=== PATIENT | female | born 1940 | race Caucasian/White ===

== ENCOUNTER 2016-11-19 06:37 | Day surgery (SDC) | payer MEDICARE, BC ==
[2016-11-19] MEDS ORDERED: Bupivacaine 0.5% 30 ML SDV ONE (06:58)
[2016-11-19] MEDS ORDERED: Povidone-Iodine 10% Soln 118.25 ML Bottle ONE (06:58)
[2016-11-19] MEDS ORDERED: Dexamethasone 4 MG/ML 5 ML MDV ONE (06:58)
[2016-11-19] MEDS ORDERED: Clindamycin Phosphate 900 MG in Sodium Chloride 0.9% 100 ML IV ONE (07:00)
[2016-11-19] MEDS ORDERED: Lactated Ringers 1,000 ML IV SCH (07:00)
[2016-11-19] MEDS ORDERED: Midazolam 1 MG/ML 2 ML SDV ONE (07:08)
[2016-11-19] MEDS ORDERED: Propofol 200 MG/20 ML SDV ONE (07:08)
[2016-11-19] MEDS ORDERED: fentaNYL 100 MCG/2 ML SDV ONE (07:08)
[2016-11-19] MEDS ORDERED: Lidocaine 0.5% 50 ML SDV ONE (07:11)
--- NOTE | 2016-11-19 09:51 | OR ---
DATE OF PROCEDURE: 11/19/2016 PREOPERATIVE DIAGNOSIS: Left carpal tunnel syndrome. POSTOPERATIVE DIAGNOSIS: Left carpal tunnel syndrome. PROCEDURE: Left carpal tunnel release. APPLICATION INTEGRATOR: ZAYRA Lara. ANESTHESIA: [place] block plus conscious sedation. FLUIDS: Lactated Ringer solution. ESTIMATED BLOOD LOSS: Zero. COMPLICATIONS: None. SPECIMEN: None. DISCHARGE DISPOSITION: Stable to PACU. INDICATION: The patient was seen preoperatively in the clinic. She had an EMG indicating entrapment of the median nerve at the wrist. Risks and benefits of the procedure were explained to the patient. Informed consent was obtained. DETAILS OF PROCEDURE: The patient was seen preoperatively by myself, and the Anesthesia staff in the preop holding area, where the operative site was marked. She was brought to the operative suite by the Anesthesia staff, where conscious sedation plus Francisco block was administered. The left upper extremity was then prepped and draped in a sterile manner. Time-out was called identifying the correct patient, the correct procedure, the correct site, and that antibiotics had begun within the appropriate period of time. An incision was made just proximal to Potter's cardinal line, in line with the radial border of the fourth digit and carried down for approximately 1.5 cm proximally. Bipolar electrocautery was used for small skin bleeders. A self-retaining retractor was then used. Fascia was then divided down to the level of the transverse carpal ligament. The transverse carpal ligament was divided along in gentle fashion, approximately 2 mm from the hook of the hamate. Metzenbaums were then used under direct visualization with the Ragnell retractor to go underneath the deep palmar fascia below and above it, and then divided with the Metzenbaums under direct visualization proximally and distally. We then copiously irrigated with sterile saline and then applied a few drops of Decadron, and then closed the incision with 3-0 nylon followed by a sterile dressing. The tourniquet was let down by Anesthesia staff after appropriate period of time. The patient was then allowed to awaken from conscious sedation and taken to the PACU in a stable condition. Levi Grossman DO /[id number]
[2016-11-19 10:32] VITALS: BP 135/87
== END 2016-11-19 10:20 | disposition home or self-care (01) ==
LOC: JP.SDS 06:37
PROVIDERS: ATTEND Orthopaedic Surgery
DX: G56.02 Carpal tunnel syndrome, left upper limb (principal); I10 Essential (primary) hypertension; F32.9 Major depressive disorder, single episode, unspecified; Z88.1 Allergy status to other antibiotic agents; Z88.2 Allergy status to sulfonamides; Z88.8 Allergy status to other drugs, medicaments and biological substances; Z91.040 Latex allergy status; Z91.09 Other allergy status, other than to drugs and biological substances; Z91.018 Allergy to other foods; Z79.899 Other long term (current) drug therapy; Z90.49 Acquired absence of other specified parts of digestive tract; Z96.659 Presence of unspecified artificial knee joint; Z98.890 Other specified postprocedural states
CPT/HCPCS: 64721; J1100; J2250; J2704; J3010; J7030; J7120; S0077

== ENCOUNTER 2018-09-28 09:15 | Emergency (ER) | payer MEDICARE ==
[2018-09-28] MEDS ORDERED: Lactated Ringers 1,000 ML IV ONE (10:00)
--- NOTE | 2018-09-28 10:06 | EDM.PDOC ---
ED HPI GENERAL MEDICAL PROBLEM - General Chief Complaint: Cardiovascular Problem Stated Complaint: BLOOD PRESSURE DROPPING Time Seen by Provider: 09/28/18 09:50 Source of Information: Reports: Patient, Old Records, RN History Limitations: Reports: No Limitations - History of Present Illness INITIAL COMMENTS - FREE TEXT/NARRATIVE: 77 yo female called the clinic today to report low BP and light-headedness when up for about a week, they told her to come to the ER. No call received from the clinic regarding this referral. Patient denies any recent med changes, bleeding , fever, diarrhea or nausea/vomiting. Feels fine when sitting or lying. Has had very high BP's in the past, but never low. 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: Reports: Other (see below) (none) - Related Data Allergies Allergy/AdvReac Type Severity Reaction Status Date / Time amoxicillin trihydrate Allergy Hives Verified 09/28/18 09:31 [From Augmentin] cefazolin sodium [From Ancef] Allergy Hives Verified 09/28/18 09:31 diclofenac sodium Allergy Cannot Verified 09/28/18 09:31 [From Arthrotec] Remember gentamicin [Gentamicin] Allergy Hives Verified 09/28/18 09:31 meloxicam [From Mobic] Allergy Rash Verified 09/28/18 09:31 misoprostol [From Arthrotec] Allergy Cannot Verified 09/28/18 09:31 Remember paroxetine Allergy Cannot Verified 09/28/18 09:31 Remember potassium clavulanate Allergy Hives Verified 09/28/18 09:31 [From Augmentin] sertraline HCl [From Zoloft] Allergy Cannot Verified 09/28/18 09:31 Remember Sulfa (Sulfonamide Allergy Rash Verified 09/28/18 09:31 Antibiotics) vancomycin Allergy Hives Verified 09/28/18 09:31 baclofen AdvReac Dizziness Verified 09/28/18 09:31 chocolate flavor AdvReac Confusion Verified 09/28/18 09:31 codeine AdvReac Stomach Verified 09/28/18 09:31 Upset gluten AdvReac Confusion Verified 09/28/18 09:31 Latex, Natural Rubber AdvReac Change Verified 09/28/18 09:31 Mental Status povidone-iodine AdvReac Blisters Verified 09/28/18 09:31 [From Betadine] prednisone AdvReac Hallucinati Verified 09/28/18 09:31 ons soap [From Betadine] AdvReac Blisters Verified 09/28/18 09:31 adhesive Allergy Blisters Uncoded 09/28/18 09:31 environmental Allergy Other Uncoded 09/28/18 09:31 flavoring agents Allergy Other Uncoded 09/28/18 09:31 Home Meds: Home Meds Albuterol Sulfate [Albuterol Sulfate HFA] 108 mcg IH Q6HR PRN 11/25/12 [History] Venlafaxine HCl [Venlafaxine ER] 75 mg PO DAILY 11/25/12 [History] traZODone HCl [Trazodone HCl] 200 mg PO BEDTIME 11/25/12 [History] Acetaminophen/Caffeine [Excedrin Tension Headache] 1 tab PO Q6H 06/02/14 [ History] Amiodarone HCl [Pacerone] 200 mg PO DAILY 06/02/14 [History] Betamethasone/Clotrimazole [Lotrisone] 1 film TOP DAILY PRN 06/02/14 [History] Loperamide HCl [Anti-Diarrheal] 2 mg PO Q4H PRN 06/02/14 [History] SUMAtriptan [Imitrex] 100 mg PO DAILY PRN 06/02/14 [History] buPROPion [buPROPion XL] 150 mg PO DAILY 06/02/14 [History] Cholecalciferol (Vitamin D3) [Vitamin D3] 2,000 units PO DAILY 11/18/16 [History ] Fluticasone Propionate [Flonase] 2 spray NS DAILY 11/19/16 [History] Pantoprazole [ProTONIX] 40 mg PO DAILY 11/19/16 [History] Diltiazem HCl [Cartia Xt] 360 mg PO DAILY 09/28/18 [History] Labetalol [Normodyne] 200 mg PO BID 09/28/18 [History] Topiramate 12.5 mg PO DAILY 09/28/18 [History] hydroCHLOROthiazide [Hydrochlorothiazide] 6.25 mg PO DAILY 09/28/18 [History] tiZANidine [Zanaflex] 4 mg PO Q8HR PRN 09/28/18 [History] Past Medical History HEENT History: Reports: Allergic Rhinitis, Cataract, Hard of Hearing, Sinusitis Cardiovascular History: Reports: Afib, High Cholesterol, Hypertension, PVD, Other (See Below) Other Cardiovascular History: mitral valve insufficiency Respiratory History: Reports: Bronchitis, Recurrent Gastrointestinal History: Reports: Cholelithiasis, GERD, Irritable Bowel Syndrome, Pancreatitis Genitourinary History: Reports: Renal Calculus, Urinary Incontinence 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: Musculoskeletal History: Reports: Arthritis, Other (See Below) Other Musculoskeletal History: s/p L carpan tunnel release Neurological History: Reports: Migraines Psychiatric History: Reports: Anxiety, Depression Endocrine/Metabolic History: Reports: Other (See Below) Other Endocrine/Metabolic History: removal of parathyroid Hematologic History: Reports: B12 Deficiency Dermatologic History: Reports: Psoriasis - Infectious Disease History Infectious Disease History: Reports: Chicken Pox, Influenza, Measles, Mumps - Past Surgical History HEENT Surgical History: Reports: Cataract Surgery Cardiovascular Surgical History: Reports: Other (See Below) Other Cardiovascular Surgeries/Procedures: caridoversion 2014 nsr since then GI Surgical History: Reports: Cholecystectomy, Colonoscopy, EGD Female Surgical History: Reports: Hysterectomy Neurological Surgical History: Reports: Lumbar Spine, Spinal Fusion Musculoskeletal Surgical History: Reports: Knee Replacement Other Musculoskeletal Surgeries/Procedures:: both Social & Family History - Family History Family Medical History: Noncontributory - Tobacco Use Smoking Status *Q: Never Smoker - Caffeine Use Caffeine Use: Reports: Tea - Recreational Drug Use Recreational Drug Use: No ED ROS GENERAL - Review of Systems Review Of Systems: See Below Constitutional: Reports: No Symptoms HEENT: Reports: No Symptoms Respiratory: Reports: No Symptoms Cardiovascular: Reports: Blood Pressure Problem, Lightheadedness Endocrine: Reports: No Symptoms GI/Abdominal: Reports: No Symptoms : Reports: No Symptoms Musculoskeletal: Reports: No Symptoms Skin: Reports: No Symptoms Neurological: Reports: No Symptoms ED EXAM, GENERAL - Physical Exam Exam: See Below Exam Limited By: No Limitations General Appearance: Alert, WD/WN, No Apparent Distress Eye Exam: Bilateral Eye: Normal Inspection Ears: Normal External Exam, Normal Canal, Hearing Grossly Normal, Normal TMs Ear Exam: Bilateral Ear: Auricle Normal, Canal Normal, TM normal Nose: Normal Inspection, No Blood Throat/Mouth: Normal Inspection, Normal Lips, Normal Oropharynx, Normal Voice, No Airway Compromise Head: Atraumatic, Normocephalic Neck: Normal Inspection Respiratory/Chest: No Respiratory Distress, Lungs Clear, Normal Breath Sounds, No Accessory Muscle Use Cardiovascular: Regular Rate, Rhythm, No Edema GI/Abdominal: Normal Bowel Sounds, Soft, Non-Tender, No Distention Back Exam: Normal Inspection. No: CVA Tenderness (R), CVA Tenderness (L) Extremities: Normal Inspection, Normal Range of Motion, Non-Tender, No Pedal Edema Neurological: Alert, Oriented, CN II-XII Intact, Normal Cognition, No Motor/ Sensory Deficits Psychiatric: Normal Affect, Normal Mood Skin Exam: Warm, Dry, Intact, Normal Color, No Rash Lymphatic: No Adenopathy Course - Vital Signs Last Recorded V/S: Last Vital Signs Temp 35.3 C 09/28/18 09:30 Pulse 57 L 09/28/18 10:20 Resp 20 09/28/18 09:30 BP 120/59 L 09/28/18 10:20 Pulse Ox 95 09/28/18 10:20 - Orders/Labs/Meds Orders: Active Orders 24 hr Category Date Time Status Lactated Ringers [Ringers, Lactated] 1,000 ml Med 09/28/18 10:00 Active IV BOLUS Medication Orders Lactated Ringer's (Ringers, Lactated) 1,000 mls @ 1,000 mls/hr IV BOLUS ONE Stop: 09/28/18 10:59 Last Admin: 09/28/18 10:14 Dose: 1,000 mls/hr Labs: Laboratory Tests 09/28/18 Range/Units 09:27 Sodium 140 (140-148) mmol/L Potassium 3.7 (3.6-5.2) mmol/L Chloride 103 (100-108) mmol/L Carbon Dioxide 26 (21-32) mmol/L Anion Gap 11.2 (5.0-14.0) mmol/L BUN 24 H D (7-18) mg/dL Creatinine 1.4 H (0.6-1.0) mg/dL Est Cr Clr Drug Dosing 24.55 mL/min Estimated GFR (MDRD) 37 L (>60) Glucose 89 (74-106) mg/dL Calcium 8.8 (8.5-10.1) mg/dL Meds: Medications Generic Name Dose Route Start Last Admin Trade Name Juliana PRN Reason Stop Dose Admin Lactated Ringer's 1,000 mls @ 1,000 mls/hr 09/28/18 10:00 09/28/18 10:14 Ringers, Lactated IV 09/28/18 10:59 1,000 mls/hr BOLUS ONE Administration Departure - Departure Time of Disposition: 11:15 Disposition: Home, Self-Care 01 Condition: Fair Clinical Impression: Mild dehydration, Orthostatic hypotension Instructions: Dehydration, Adult, [id number] Referrals: Saturnino Huertas MD [Primary Care Provider] - Forms: ED Department Discharge Additional Instructions: Reduce the dosage of your HCTZ to every other day. Drink more fluids than you have been drinking. Recheck with your provider again before the weekend. - My Orders Last 24 Hours: My Active Orders 09/28/18 10:00 Lactated Ringers [Ringers, Lactated] 1,000 ml IV BOLUS - Assessment/Plan Last 24 Hours: My Active Orders 09/28/18 10:00 Lactated Ringers [Ringers, Lactated] 1,000 ml IV BOLUS
[2018-09-28 10:29] VITALS: PULSE 57
[2018-09-28 11:26] VITALS: BP 128/58
== END 2018-09-28 11:28 | disposition home or self-care (01) ==
LOC: JP.ED 09:15
DX: E86.0 Dehydration (principal); I95.1 Orthostatic hypotension; I48.91 Unspecified atrial fibrillation; E78.00 Pure hypercholesterolemia, unspecified; I10 Essential (primary) hypertension; K21.9 Gastro-esophageal reflux disease without esophagitis; F41.9 Anxiety disorder, unspecified; F32.9 Major depressive disorder, single episode, unspecified; Z88.1 Allergy status to other antibiotic agents; Z91.048 Other nonmedicinal substance allergy status; Z88.8 Allergy status to other drugs, medicaments and biological substances; Z91.040 Latex allergy status; Z88.5 Allergy status to narcotic agent; Z91.018 Allergy to other foods; Z88.2 Allergy status to sulfonamides; Z79.899 Other long term (current) drug therapy; Z87.442 Personal history of urinary calculi
CPT/HCPCS: 36415; 80048; 96360; 99284; J7120

== ENCOUNTER 2022-12-07 10:58 | Emergency (ER) | payer MEDICARE ==
[2022-12-07 11:35] LABS: BASOPHILS ABSOLUTE AUTO 0.03 K/uL (0.00-0.10); BASOPHILS PERCENT AUTO 0.3 % (0.1-1.3); EOSINOPHILS ABSOLUTE AUTO 0.14 K/uL (0.00-0.40); EOSINOPHILS PERCENT AUTO 1.6 % (0.0-5.4); HEMATOCRIT 38.1 % (34.3-46.0); HEMOGLOBIN 12.5 g/dL (11.2-15.5); IMMATURE GRAN PERCENT AUTO 0.2 % (0.0-0.7); LYMPHOCYTES ABSOLUTE AUTO 1.23 K/uL (0.8-3.3); LYMPHOCYTES PERCENT AUTO 13.9 % (11.4-47.7); MEAN CORPUSCULAR HGB CONC 32.8 g/dL (31.6-35.5); MEAN CORPUSCULAR VOLUME 91.6 fL (81.4-99.0); MONOCYTES ABSOLUTE AUTO 0.56 K/uL (0.20-0.90); MONOCYTES PERCENT AUTO 6.3 % (3.3-12.6); NEUTROPHILS ABSOLUTE AUTO 6.88 K/uL (1.0-7.6); NEUTROPHILS PERCENT AUTO 77.7 % (40.0-78.1); PLATELET COUNT,PLT 204 K/uL (130-375); RED BLOOD CELL COUNT 4.16 M/uL (3.77-5.24); WHITE BLOOD CELL COUNT,WBC 8.9 K/uL (3.2-11.0)
[2022-12-07 11:38] LABS: IMMATURE GRAN ABSOLUTE AUTO 0.02 K/uL (0.00-0.23)
[2022-12-07 11:53] LABS: BILIRUBIN,URINE NEGATIVE (NEGATIVE); COLOR,URINE YELLOW (YELLOW); GLUCOSE,URINE NEGATIVE (NEGATIVE); KETONES,URINE NEGATIVE (NEGATIVE); LEUKOCYTE ESTERASE,URINE SMALL (NEGATIVE); NITRITE,URINE NEGATIVE (NEGATIVE); OCCULT BLOOD,URINE TRACE-INTACT (NEGATIVE); PH,URINE 5.5 (5.0-8.0); PROTEIN,URINE 30 mg/dL (NEGATIVE); UROBILINOGEN,URINE 0.2 EU/dL (0.2-1.0)
[2022-12-07 11:56] LABS: ALANINE AMINOTRANSFERASE,ALT 27 U/L (12-78); ALBUMIN 3.4 g/dL (3.4-5.0); ALKALINE PHOSPHATASE 81 U/L (46-116); ASPARTATE AMNIOTRANSFERASE,AST 23 U/L (15-37); BILIRUBIN TOTAL 0.3 mg/dL (0.2-1.0); BLOOD UREA NITROGEN,BUN 20 mg/dL (7-18); C-REACTIVE PROTEIN 0.14 mg/dL (0.0-0.3); CALCIUM 8.6 mg/dL (8.5-10.1); CARBON DIOXIDE,CO2 29 mmol/L (21-32); CHLORIDE,CL 105 mmol/L (100-108); CREATININE 1.4 mg/dL (0.6-1.0); EST CRCL DRUG DOSING (CG) 23.02 mL/min; ESTIMATED GFR 38 mL/min (>60); GLUCOSE RANDOM 107 mg/dL (74-106); POTASSIUM,K 4.6 mmol/L (3.6-5.2); PROTEIN TOTAL,TP 6.9 g/dL (6.4-8.2); SODIUM,NA 138 mmol/L (140-148)
[2022-12-07 11:59] LABS: ANION GAP 8.6 mmol/L (5.0-14.0)
[2022-12-07 11:59] LABS: AMORPHOUS SEDIMENT,URINE RARE; APPEARANCE,URINE CLOUDY (CLEAR); BACTERIA,URINE FEW; EPITHELIAL CELLS,URINE FEW; MUCUS,URINE NOT SEEN
[2022-12-07] MEDS ORDERED: Sodium Chloride 0.9% 1,000 ML IV ONE (12:14)
[2022-12-07] MEDS ORDERED: Sodium Chloride 0.9% 10 ML Syringe FLUSH PRN (12:14)
[2022-12-07] MEDS ORDERED: Sodium Chloride 0.9% 500 ML IV ONE (12:17)
[2022-12-07 13:47] VITALS: BP 135/72; PULSE 69
== END 2022-12-07 14:47 | disposition home or self-care (01) ==
LOC: JP.ED 10:58
DX: N20.0 Calculus of kidney (principal); N30.01 Acute cystitis with hematuria; E78.00 Pure hypercholesterolemia, unspecified; I10 Essential (primary) hypertension; Z79.899 Other long term (current) drug therapy; Z91.048 Other nonmedicinal substance allergy status; Z88.8 Allergy status to other drugs, medicaments and biological substances; Z88.2 Allergy status to sulfonamides; Z91.018 Allergy to other foods; Z91.040 Latex allergy status; Z88.5 Allergy status to narcotic agent; Z88.1 Allergy status to other antibiotic agents
CPT/HCPCS: 36415; 74176; 80053; 81001; 85025; 86140; 87086; 99284; J3490; J7030; 99283

== ENCOUNTER 2023-05-05 07:35 | Day surgery (SDC) | payer MEDICARE ==
[2023-05-05] MEDS ORDERED: fentaNYL 100 MCG/2 ML SDV ONE (08:41)
[2023-05-05] MEDS ORDERED: Propofol 200 MG/20 ML SDV ONE (08:41)
[2023-05-05] MEDS: Lactated Ringers 1,000 ML IV SCH (08:44)
[2023-05-05 10:52] VITALS: BP 132/85; PULSE 79
== END 2023-05-05 11:10 | disposition home or self-care (01) ==
LOC: JP.SDS 07:35
PROVIDERS: ATTEND Family Medicine
DX: K92.1 Melena (principal); K29.50 Unspecified chronic gastritis without bleeding; K44.9 Diaphragmatic hernia without obstruction or gangrene; I73.9 Peripheral vascular disease, unspecified; I48.0 Paroxysmal atrial fibrillation; I13.0 Hypertensive heart and chronic kidney disease with heart failure and stage 1 through stage 4 chronic kidney disease, or unspecified chronic kidney disease; N18.9 Chronic kidney disease, unspecified; I50.32 Chronic diastolic (congestive) heart failure; Z79.899 Other long term (current) drug therapy; Z79.82 Long term (current) use of aspirin; Z88.1 Allergy status to other antibiotic agents; Z88.8 Allergy status to other drugs, medicaments and biological substances; Z91.048 Other nonmedicinal substance allergy status; Z88.2 Allergy status to sulfonamides; Z91.040 Latex allergy status; Z91.041 Radiographic dye allergy status; Z88.5 Allergy status to narcotic agent
CPT/HCPCS: 43235; 45378; J2704; J3010; J7120